=== PATIENT | female | born 1990 | race African-American/Black ===

== ENCOUNTER 2024-07-27 06:59 | Emergency (ER) | payer OTHER, SELFPAY ==
[2024-07-27 07:11] VITALS: BMI 40.9
[2024-07-27 07:12] VITALS: BP 182/115
--- NOTE | 2024-07-27 07:19 | ED.GENMED ---
History of Present Illness
General
Chief Complaint: Abdominal Symptoms
Source: patient
Exam Limitations: none
Time Seen by Provider: 07/27/24 07:08
History of Present Illness
History of Present Illness:
34-year-old female with history of hypertension presents with onset of nausea vomiting diarrhea earlier this morning. She estimates she has vomited around 30 times. She cannot keep anything down. She notes diffuse abdominal discomfort as well.
Dorsalis denies any blood in the vomit or the stool. No measurable fever. Her daughter was sick with similar symptoms several days ago.
Phy Exam
Physical Exam
Physical Exam:
General: Uncomfortable appearing female no acute respiratory distress
HEENT: Normocephalic atraumatic mucosa dry neck is supple
Heart: Regular rate and rhythm no murmurs
Lungs: Clear no wheeze
Abdomen is soft mildly diffusely tender normal bowel sounds no guarding rebound nondistended
Extremities: No cyanosis
Skin: Warm no rash
Course
Orders/Labs/Results
Orders:
Orders
07/27/24 07:13
Test Result ONCE
07/27/24 07:18
0.9% Sodium Chloride 1000 ml [Nss] 1,000 ml IV BOLUS
Famotidine [Pepcid] 20 mg IV NOW STA
Ondansetron Injectable [Zofran] 4 mg IV NOW STA
07/27/24 07:20
Complete Blood Count/With Diff Urgent
Comprehensive Metabolic Panel Urgent
HCG, Serum Qualitative Screen Urgent
Lipase Urgent
07/27/24 07:48
Diphenhydramine [Benadryl] 25 mg IV NOW STA
Ketorolac [Toradol] 15 mg IV NOW STA
Prochlorperazine [Compazine] 10 mg IV NOW STA
07/27/24 09:25
CR Obstruct Series W/pa Chest Urgent
Comment:
Reason For Exam: vomiting
07/27/24 10:05
Promethazine [Phenergan] 25 mg 0.9% Sodium Chloride 50 ml [Nss] 50 ml IV NOW
Abnormal Lab Results
07/27/24
07:20
WBC 13.3 H 10^3/uL
(4.8-10.8)
RBC 5.57 H 10^6/uL
(4.20-5.40)
MCH 26.4 L pg
(27.0-31.0)
MCHC 32.6 L g/dL
(33.0-37.0)
MPV 10.6 H fL
(7.4-10.4)
Abs Immat Gran (auto) 0.1 H 10^3/uL
(0-0.05)
Absolute Neuts (auto) 12.5 H 10^3/uL
(1.4-6.5)
Absolute Lymphs (auto) 0.4 L 10^3/uL
(1.2-3.4)
Neutrophils % 94.0 H %
(42.2-75.2)
Lymphocytes % 3.0 L %
(20.5-51.1)
Potassium 3.4 L mmol/L
(3.5-5.1)
Glucose 176 H mg/dl
(70-99)
07/27/24 07:20
07/27/24 07:20
Vital Signs
Initial and Last Documented VS:
Initial Vital Signs
Temp Pulse Resp BP Pulse Ox
98.6 F 78 18 182/115 99
07/27/24 07:12 07/27/24 07:12 07/27/24 07:12 07/27/24 07:12 07/27/24 07:12
Last Documented Vital Signs
Temp Pulse Resp BP Pulse Ox
98.6 F 78 18 182/115 99
07/27/24 07:12 07/27/24 07:12 07/27/24 07:12 07/27/24 07:12 07/27/24 07:12
MDM/Problems Addressed
Differential Diagnosis Includes:
Patient with nausea vomiting diarrhea onset this a.m. Daughter sick with similar symptoms. Likely viral illness. Abdomen exam nonspecific no indication for imaging at this time. Consider electrolyte abnormality or dehydration. Will check labs
fluids ordered Zofran and Pepcid ordered.
Patient currently on her menstrual cycle
*Critical Care Note
Total Time (30-74mins, 75-104mins- exclusive of procedures): Not Applicable
Update Note
Update Note:
Patient reevaluated multiple times. She did require several doses of antiemetics here. She is now tolerating ice chips presented idea of going home versus staying. She wishes to try to go home. I suspect viral illness. Obstruction series is
negative. Recommended clear liquids and advancement of bland diet as tolerated at home.
ED Attending Note
-
Portions of this chart may have been created with voice recognition software.� Occasional wrong word or��sound alike� substitutions may have occurred due to the inherent limitations of voice recognition software.
Discharge Plan
Departure
Patient Disposition: Home (Routine Discharge)
Date of Disposition: 07/27/24
Time of Disposition: 12:30
Patient with high blood pressure during this ER visit?: No
Discharge Problem:
Vomiting and diarrhea
Instructions: Nausea and Vomiting, Adult (DC)
Prescriptions:
New
prochlorperazine maleate [Compazine] 10 mg tablet
10 mg PO Q6H PRN (Reason: nausea and vomiting) Qty: 10 0RF
Referrals:
UNKNOWN - PT DOES,NOT KNOW [Family Provider] -
Activity Restrictions/Additional Instructions:
Rest. Drink plenty fluids. Advance to bland diet as tolerated. Use nausea medicine as needed for nausea. Return if needed otherwise
Interventions
Interventions:
*Risk Screen - Suicide Last Done: 07/27/24 07:09
*General Assessment Last Done: 07/27/24 07:09
*Neglect/Abuse Screening Last Done: 07/27/24 07:09
ED- Fall Risk Assessment Last Done: 07/27/24 07:27
*ED COVID-19 Vaccine History Last Done: 07/27/24 07:09
BQ-Ccmxgb-Adpqifpypl Assessment Last Done: 07/27/24 07:27
Discharge Date and Time
Print Language: [id number]
[2024-07-27] MEDS: ZOFRAN 4 MG IV (07:23)
[2024-07-27] MEDS: PEPCID 20 MG IV (07:24)
[2024-07-27] MEDS: NSS 1000 IV (07:25)
[2024-07-27 07:28] LABS: % Basophils 0.1 % (0-2); % Immature Granulocytes 0.4 % (0-0.5); % Monocytes 2.5 % (1.7-9.3); Absolute Immature Granulocytes 0.1 10^3/uL (0-0.05); Absolute Lymphocytes 0.4 10^3/uL (1.2-3.4); Absolute Monocytes 0.3 10^3/uL (0.1-0.6); Absolute Neutrophils 12.5 10^3/uL (1.4-6.5); Hematocrit 45.1 % (37.0-47.0); Hemoglobin 14.7 g/dL (12.0-16.0); Mean Corp Hgb Conc. 32.6 g/dL (33.0-37.0); Mean Corpuscular Hgb 26.4 pg (27.0-31.0); Mean Platelet Volume 10.6 fL (7.4-10.4); Nucleated Red Blood Cells % 0 %; Platelet Count 239 10^3/uL (130-400); Red Blood Cell Count 5.57 10^6/uL (4.20-5.40); White Blood Cell Count 13.3 10^3/uL (4.8-10.8)
[2024-07-27 07:40] LABS: HCG, Serum Qualitative Screen Negative
[2024-07-27 07:43] LABS: ALT (SGPT) 25 U/L (0-35); AST (SGOT) 26 U/L (14-36); Albumin 4.7 g/dl (3.5-5.0); Alkaline Phosphatase 107 U/L (38-126); Blood Urea Nitrogen 13 mg/dl (7-17); Calcium 8.8 mg/dl (8.4-10.2); Carbon Dioxide 27 mmol/L (22-30); Chloride 98 mmol/L (98-107); Estimated Creatinine Clearance > 125 ml/min; Glucose 176 mg/dl (70-99); Lipase 49 U/L (23-300); Potassium 3.4 mmol/L (3.5-5.1); Sodium 136 mmol/L (135-145); Total Bilirubin 0.4 mg/dl (0.2-1.3); Total Protein 7.8 g/dl (6.3-8.2); eGFR > 60.00
[2024-07-27] MEDS: COMPAZINE 10 MG IV (07:50)
[2024-07-27] MEDS: BENADRYL 25 MG IV (07:50)
[2024-07-27] MEDS: TORADOL 15 MG IV (07:50)
[2024-07-27] MEDS: PHENERGAN 51 MG IV (10:17)
[2024-07-27 12:38] VITALS: BP 180/98
== END 2024-07-27 12:39 | disposition home or self-care (01) ==
LOC: EMR 06:59
PROVIDERS: EMERGENCY PHYSICIAN Emergency Medicine
DX: R11.2 Nausea with vomiting, unspecified (principal); R19.7 Diarrhea, unspecified; R10.9 Unspecified abdominal pain; I10 Essential (primary) hypertension
CPT/HCPCS: 99284; 96374; 96375 ×5; 96361 ×2; 74022; 80053; 83690; 84703; 85025